=== PATIENT | female | born 1960 | race Caucasian/White ===

== ENCOUNTER → 2021-02-02 | Outpatient (CLI) | payer OTHER | END | disposition home or self-care (01) | LOC: LABWHC1 16:28 | PROVIDERS: ATTEND Internal Medicine | DX: Z20.822 Contact with and (suspected) exposure to COVID-19 (principal); R05 Cough | CPT/HCPCS: U0003; C9803; U0005 ==

== ENCOUNTER → 2021-02-22 | Outpatient (CLI) | payer OTHER ==
--- NOTE | 2021-02-22 14:00 | XR ---
EXAMINATION TYPE: XR chest 2V DATE OF EXAM: 02/22/2021 COMPARISON: NONE HISTORY: Chronic cough, shortness of breath and wheezing TECHNIQUE: Frontal and lateral views of the chest are obtained. FINDINGS: There is no focal air space opacity, pleural effusion, or pneumothorax seen. The cardiac silhouette size is within normal limits. The aorta is dense. There is multilevel thoracic spondylosi s. Bronchial wall thickening is present. There are prominent lung volumes which may be indicative of underlying COPD. The osseous structures are intact, there is thoracic spondylosis. IMPRESSION: Correlate for bronchitis.
== END | disposition home or self-care (01) ==
LOC: RADXRYALE 13:05
PROVIDERS: ATTEND Internal Medicine
DX: J98.4 Other disorders of lung (principal)
CPT/HCPCS: 71046

== ENCOUNTER → 2021-08-29 | Outpatient (CLI) | payer OTHER ==
--- NOTE | 2021-08-29 20:56 | XR ---
EXAMINATION TYPE: XR lumbosacral spine min 4V DATE OF EXAM: 08/29/2021 COMPARISON: NONE INDICATION: Back pain TECHNIQUE: 5 views of the lumbar spine FINDINGS: Grade 1 anterolisthesis of L5 over S1 with bilateral L5 pars interarticularis break. No definite vert ebral body collapse or acute displaced fracture. Degenerative changes of the lumbar spine with multilevel opposing endplate osteophytosis and degenera tive discs (most evident at L5-S1 disc). Multilevel facet osteoarthropathy is also suspected. Arterial atherosclerotic calcifications. IMPRESSION: Grade 1 anterolisthesis of L5 over S1 with bilateral L5 pars break. Degenerative changes of the lumba r spine as described above. Further MRI assessment can be considered if clinically required.
--- NOTE | 2021-08-29 21:13 | XR ---
EXAMINATION TYPE: XR elbow complete RT DATE OF EXAM: 08/29/2021 COMPARISON: NONE INDICATION: Pain after fall TECHNIQUE: 3 views of the right elbow FINDINGS: Suspected elongated bone fragment is seen along the medial aspect of the sublime tubercle of the ulna which could represent osteophytosis or degenerative changes however avulsion fracture can't be exclu ded, please correlate clinically. No definite acute fracture line identified otherwise. Enthesophyte of the lateral humeral epicondyles . Degenerative changes of the posterior aspect of the olecranon. No sizable elbow joint effusion. IMPRESSION: Subtle fracture versus degenerative changes of the elbow as described above, please correlate clinica lly. Further CT assessment can be considered if clinically required.
== END | disposition home or self-care (01) ==
LOC: RADXRYALE 11:34
PROVIDERS: ATTEND Internal Medicine
DX: M47.816 Spondylosis without myelopathy or radiculopathy, lumbar region (principal); M43.17 Spondylolisthesis, lumbosacral region; M25.521 Pain in right elbow
CPT/HCPCS: 72110

== ENCOUNTER → 2022-08-09 | Outpatient (CLI) | payer OTHER ==
--- NOTE | 2022-08-09 09:04 | MR ---
EXAMINATION TYPE: MR lumbar spine wo con DATE OF EXAM: 08/09/2022 7:56 AM COMPARISON: Radiograph 08/29/2021. CLINICAL INDICATION:Female, 61 years old with history of M51.36 INTERVERTEBRAL DISC DEGENERATION, LUM BAR RE; Low back pain into sarabjit lower extremities, pain in tailbone TECHNIQUE: Multi planar, multi sequence imaging was performed utilizing: T1-weighted, T2-weighted, a nd turbo inversion recovery imaging of the lumbar spine. IV Contrast: None. FINDINGS: Alignment: The lumbar vertebral bodies have preserved heights with grade 1 anterolisthesis of L5 on S 1.. Cord: The conus medullaris and the distal spinal cord appear unremarkable with regards to their signa l intensity and morphology. Bones/Discs: Scattered degeneration changes with osteophyte formation and disc space narrowing. Facet joint arthropathy seen throughout the spine. No abnormal bony edema on inversion recovery sequences. Multilevel degenerative disc disease is noted and most pronounced at the L5-S1. Multilevel disc celestino ccation is present. T12-L1: No evidence of significant spinal canal stenosis or neural foraminal stenosis. L1-L2: No evidence of significant spinal canal stenosis or neural foraminal stenosis. L2-L3: No evidence of significant spinal canal stenosis or neural foraminal stenosis. L3-L4: No evidence of significant spinal canal stenosis. Facet joint arthropathy mild bilateral neura l foraminal stenosis. L4-L5: No evidence of significant spinal canal stenosis. Facet joint arthropathy mild bilateral neura l foraminal stenosis. L5-S1: Disc uncovering from grade 1 anterolisthesis and facet joint arthropathy with mild spinal brian l stenosis and moderate to severe bilateral neural foraminal stenosis. Other findings: None. IMPRESSION: 1. No definitive evidence of disc herniation or significant spinal canal stenosis. 2. Mild disc degeneration with associated osteoarthritic changes. 3. Grade 1 anterolisthesis of L5 on S1 with moderate to severe bilateral neural foraminal stenosis.
== END | disposition home or self-care (01) ==
LOC: RADMRIMAIN 07:15
PROVIDERS: ATTEND Physician Assistant Medical
DX: M51.36 Other intervertebral disc degeneration, lumbar region (principal); M47.816 Spondylosis without myelopathy or radiculopathy, lumbar region; M43.17 Spondylolisthesis, lumbosacral region; M99.73 Connective tissue and disc stenosis of intervertebral foramina of lumbar region
CPT/HCPCS: 72148